=== PATIENT | female | born 1970 | race Caucasian/White ===

== ENCOUNTER 2020-08-24 22:03 | Emergency (ER) | payer OTHER | END 2020-08-24 23:40 | disposition home or self-care (01) | LOC: FER 22:03 | DX: S90.121A Contusion of right lesser toe(s) without damage to nail, initial encounter (principal); W22.8XXA Striking against or struck by other objects, initial encounter; Y92.512 Supermarket, store or market as the place of occurrence of the external cause | CPT/HCPCS: 73630 ==

== ENCOUNTER 2021-02-12 16:29 | Emergency (ER) | payer OTHER ==
[2021-02-12 17:14] LABS: BILIRUBIN - TOTAL 0.6 mg/dL (0.2-1.0); BUN/CREAT RATIO (CALC) 10.6 RATIO; CREATININE 0.66 mg/dL (0.51-0.95); GLOBULIN (CALCULATION) 4.2 g/dL; POTASSIUM 3.8 mmol/L (3.5-5.1); TOTAL PROTEIN 8.2 g/dL (6.4-8.2)
[2021-02-12 17:15] LABS: BASOPHIL 0.4 % (0-2); EOSINOPHIL 1.4 % (0-5); HCT 45.7 % (37.0-47.0); HGB 15.8 g/dl (12.5-16.0); LYMPHOCYTE 35.7 % (15-48); MCH 34.1 pg (25.0-31.0); MCHC 34.6 g/dL (32.0-36.0); MCV 98.5 fL (78.0-100.0); MONOCYTE 6.8 % (0-12); NEUTROPHIL 55.3 % (41-80); NRBC 0; PLT 262 K/uL (150-400); RBC 4.64 M/uL (4.20-5.40); RDW 13.1 % (11.5-14.0); WBC 10.4 K/uL (4.0-10.5)
[2021-02-12] MEDS ORDERED: ZOFRAN4 M1 PO (20:27)
== END 2021-02-12 21:52 | disposition home or self-care (01) ==
LOC: FER 16:29
PROVIDERS: Physician Assistant
DX: R07.89 Other chest pain (principal); R10.13 Epigastric pain; I10 Essential (primary) hypertension; Z87.891 Personal history of nicotine dependence
CPT/HCPCS: 36415; 71045; 80053; 83690; 84484; 85025; 93005; J2405